=== PATIENT | female | born 1980 ===

== ENCOUNTER 2019-09-20 15:55 | Inpatient (IN) | payer SELFPAY ==
[2019-09-20] MEDS ORDERED: BICITRA 30ML SOLN UDC ONE (18:32)
[2019-09-20] MEDS ORDERED: ceFAZolin 2 GM/D5W 50 ML IV BAG (J0690 PER 500MG) ONE (18:32)
[2019-09-20] MEDS ORDERED: MORPHINE PRES-FREE INJ 10 MG/10 ML VIAL (J2274) As Ordered ONE (19:39)
[2019-09-20] MEDS ORDERED: ePHEDrine SULFATE 25 MG/5 ML(5MG/ML) SYRINGE As Ordered ONE (19:39)
[2019-09-20] MEDS ORDERED: PHENYLephrine HCL 500 MCG/5 ML (100MCG/ML) SYRINGE (J2370) As Ordered ONE (19:39)
[2019-09-20] MEDS ORDERED: OXYTOCIN 30 UNITS IN 0.9% NaCl 500ML IV BAG (J2590) As Ordered ONE (19:43)
[2019-09-20] MEDS ORDERED: KETOROLAC 60MG 2ML VIAL As Ordered ONE (19:45)
[2019-09-20] MEDS ORDERED: ONDANSETRON 4MG/2ML VIAL As Ordered ONE (19:45)
[2019-09-21] MEDS ORDERED: IBUPROFEN 800 MG TAB ONE ×2 (04:54→19:00)
[2019-09-21] MEDS ORDERED: IBUPROFEN 800 MG TAB As Ordered ONE ×2 (13:02→19:04)
[2019-09-22] MEDS ORDERED: IBUPROFEN 800 MG TAB As Ordered ONE (11:09)
[2019-09-22] MEDS ORDERED: IBUPROFEN 800 MG TAB ONE (11:09)
[2019-11-10 10:16] LABS: HEMATOCRIT 36.3 % (36.0-47.0); HEMOGLOBIN 11.9 g/dl (12.0-15.5); MEAN CORPUSCULAR HEMOGLOBIN 27.9 pg (27.0-33.0); MEAN CORPUSCULAR HGB CONC 32.8 g/dl (32.0-36.5); MEAN CORPUSCULAR VOLUME 85.2 fl (80.0-96.0); PLATELET COUNT, AUTOMATED 255 10^3/uL (150-450); RED BLOOD COUNT 4.26 10^6/uL (4.00-5.40); WHITE BLOOD COUNT 11.6 10^3/uL (4.0-10.0)
[2019-11-13 01:01] LABS: HEMATOCRIT 33.1 % (36.0-47.0); HEMOGLOBIN 10.8 g/dl (12.0-15.5); MEAN CORPUSCULAR HEMOGLOBIN 28.1 pg (27.0-33.0); MEAN CORPUSCULAR HGB CONC 32.6 g/dl (32.0-36.5); PLATELET COUNT, AUTOMATED 203 10^3/uL (150-450); RED BLOOD COUNT 3.85 10^6/uL (4.00-5.40); WHITE BLOOD COUNT 15.1 10^3/uL (4.0-10.0)
--- NOTE | 2019-11-14 14:05 | HPE ---
DATE OF ADMISSION: 09/20/2019 She is a 19-year-old female who is 3, para 0-1-0-1 with a history of prior section at 32 weeks due to preeclampsia. She was being seen by a southeast regional sales manager in her community, presented here at 42 weeks and 2/7 weeks gestation not being able to get into labor on her own, wishing to proceed with a repeat section. Given her advanced gestational age, the decision was made to proceed with admission and to proceed with a repeat section. She has an intermittent record with the southeast regional sales manager, those were reviewed, which was essentially unremarkable. PAST MEDICAL HISTORY: Denies. PAST SURGICAL HISTORY: section at 32 weeks with preeclampsia. SOCIAL HISTORY: She is a , [place] lady with no history of any alcohol, drug, or cigarette smoking. REVIEW OF SYSTEMS: Unremarkable. PHYSICAL EXAMINATION: HEENT: Grossly within normal limits. Abdomen: Soft, nontender, nondistended. Extremities: No clubbing, cyanosis, or edema. Vaginal exam: Closed, thick, and posterior, fetus at -4 station in a vertex position. Tracing reviewed, category 1 tracing. ASSESSMENT: Intrauterine at 42-2/7 weeks gestation based on a third trimester ultrasound and by her southeast regional sales manager record. History of prior section, desires a repeat section. PLAN: Admit to labor and delivery. Routine labs sent. section discussed with the patient as well as risks and benefits and decision made to proceed with the section. TRICIA
--- NOTE | 2019-11-17 10:56 | RO ---
DATE OF OPERATION: 09/20/2019 HISTORY: Azeb is a 19-year-old female 3, para 0-1-1-1, with a history of prior section at 32 weeks gestation, who was admitted at 42 and 2/7 weeks gestation and desires repeat section after a failed attempt at vaginal after (). PREOPERATIVE DIAGNOSES: * Term at 42 and 2/7 weeks gestation. * History of prior section at 32 weeks. * Desires repeat section. POSTOPERATIVE DIAGNOSIS: * Term at 42 and 2/7 weeks gestation. * History of prior section at 32 weeks. * Desires repeat section. * Fibroid uterus. PROCEDURE(S) PERFORMED: * Repeat section. * Revision of old scar. ANESTHESIA: Spinal. SURGEON: Jerry Garcia D.O. PROFESSIONAL SYSTEM ADMINISTRATOR: Dany Addison DO COMPLICATIONS: None. ESTIMATED BLOOD LOSS: 500 mL. FINDINGS: Live male infant with nuchal cord x1. 6 and 7. weight 8 pounds 1 ounce. Normal appearing placenta. Multiple fibroid uterus noted. DESCRIPTION OF PROCEDURE: After obtaining informed consent, the patient was taken to the operating room where spinal anesthetic was found to be adequate. She was then draped in the usual sterile fashion in the supine position at this point with the help of my addictions counselor assistant, Dr. Addison. An elliptical incision was made over the old scar and the old scar was removed. The incision was carried down to the fascia. The fascia was incised through the midline fascia and carried through laterally. The superior aspect of the fascia was then grasped with marcus clamps, tented off and dissected off the rectus muscle sharply. The inferior aspect was dissected off in a similar fashion. Rectus muscle severed in the midline fascia. Peritoneum identified. Perineal cavity entered bluntly. Superior and inferior dissection of the peritoneum was then done with good visualization of the bladder. At this point, a Mobius skin retractor was placed. A low transverse uterine incision was made. The was delivered in atraumatic fashion using mild bulb suction. Cord doubly clamped and cut, and the infant was handed over to the waiting nurse. Cord blood and cord gas was sent. Placenta removed manually. Uterus cleared of all clot and debris. The uterine incision was then repaired with two separate layers of 0-Vicryl sutures. All superficial bleeders were coagulated and the skin was reapproximated in a subcuticular fashion using 3-0 Vicryl on a Ck needle. Steri-Strips placed. Patient tolerated the procedure well. She was then transferred to the recovery room in stable condition. TRICIA
[2019-12-14 03:39] LABS: HEPATITIS B SURFACE ANTIGEN NEGATIVE (NEGATIVE); HIV 1&2 SCREEN CENTAUR NEGATIVE (NEGATIVE)
== END 2019-09-22 10:00 | disposition home or self-care (01) | DRG 540 ==
LOC: M LDI 15:55
PROVIDERS: ADMIT Obstetrics & Gynecology; ATTEND Obstetrics & Gynecology
PROC: 10D00Z1 Extraction of Products of Conception, Low, Open Approach (ICD-10-PCS; principal; 2019-09-20)
PROC: 0HB7XZZ Excision of Abdomen Skin, External Approach (ICD-10-PCS; 2019-09-20)
DX: O34.211 Maternal care for low transverse scar from previous cesarean delivery (principal); Z37.0 Single live birth; Z3A.42 42 weeks gestation of pregnancy; O09.523 Supervision of elderly multigravida, third trimester